=== PATIENT | female | born 1995 | race Caucasian/White ===

== ENCOUNTER 2024-04-17 10:26 | Emergency (ER) | payer SELFPAY ==
[2024-04-17 10:26] VITALS: BP 131/84
--- NOTE | 2024-04-17 12:48 | ED.GENMED ---
History of Present Illness
General
Chief Complaint: Abdominal Pain
Source: patient
Exam Limitations: none
Time Seen by Provider: 04/17/24 12:34
Nursing documentation reviewed up to this point in time: agreed with
History of Present Illness
History of Present Illness:
29-year-old female with no clinically significant PMHX is here for left-sided abdominal pain.
Patient states pain has come and gone over the past month, it got worse last night to where she had trouble sleeping. She was seen at [facility] yesterday, she is very tearful explaining that they did a pelvic ultrasound which showed a cyst on her
ovary diagnosed her with UTI and discharged her on Macrodantin which she has had 1 dose.
She states she was told they were going to do a CAT scan but 'never did it.'
She states the pain is relieved somewhat temporarily with ibuprofen. She has been nauseous but not vomited. She denies fever or chills. Denies chest pain or trouble breathing. Denies burning or frequency or urgency with urination. Denies
diarrhea or constipation.
Past History
Past History
ED Past Medical History: Psychiatric (Depression, on Adderall and medical marijuana) and Other (UTI)
ED Past Surgical History: None
Social History
Tobacco: Former smoker
Alcohol: None
Drug: Marijuana
Personal: Single
Living: with family
Employment: Employed
Review of Systems
Review of Systems
Allergies reviewed?: Yes
All Other Systems: ROS reviewed and negative except as documented in HPI and ROS
Constitutional: Denies fever
EENT: Denies sore throat
Respiratory: Denies trouble breathing
ABD/GI: Reports abdominal pain and nausea; Denies vomiting, diarrhea, constipated, bloody stools, black stools or anorexia
: Denies dysuria, frequency, flank pain, difficulty voiding, bleeding or discharge
Musculoskeletal: Reports no symptoms
Skin: Reports no symptoms
Neurological: Reports no symptoms
Phy Exam
Physical Exam
Physical Exam:
GENERAL: No acute distress. A&Ox3.
CONSTITUTIONAL: Afebrile.
EYES: PERRL, conjunctivae normal
Neck: Supple
ENMT: moist mucus membranes, Pharynx nl
RESPIRATORY: Regular respirations, nonlabored, lungs clear.
CARDIOVASCULAR: Regular rate and rhythm, no murmurs, no rubs.
GI: Soft, tender left side abdomen,, nondistended, normal BS
MUSCULOSKELETAL: Moves with ease. Well perfused.
SKIN: Warm, dry, pink
PSYCH: Tearful, depressed mood and affect. Well kept, interactive and appropriate
NEUROLOGIC: Awake, alert and oriented. No focal neurological deficits
Course
Orders/Labs/Results
Orders:
Orders
04/17/24 12:46
CT Abd/pel W Iv And Oral Contr Urgent
Comment:
Reason For Exam: left side abdominal pain
Iohexol [Omnipaque] See Protocol PO NOW STA
Test Result ONCE
04/17/24 12:47
0.9% Sodium Chloride 1000 ml [Nss] 1,000 ml IV BOLUS
Ketorolac [Toradol] 15 mg IV NOW STA
Ondansetron Injectable [Zofran] 4 mg IV NOW STA
04/17/24 12:57
Test Result ONCE
04/17/24 13:08
Complete Blood Count/With Diff Urgent
Comprehensive Metabolic Panel Urgent
HCG, Serum Qualitative Screen Urgent
Lipase Urgent
TSH Urgent
Comment: ADD ON
04/17/24 13:10
Urinalysis Reflex To Culture Urgent
Date Specimen was Collected: 04/17/24
Time Specimen was Collected: 13:09
Urine Microscopic Reflex Cult Urgent
Urine Culture Urgent
VITO Source: U
Specimen Description:
Date Specimen was Collected: 04/17/24
Time Specimen was Collected: 13:09
04/17/24 16:29
Add On- LAB Urgent
Tests Added?: TSH
04/17/24 17:20
Tamsulosin [Flomax] 0.4 mg PO NOW STA
04/17/24 17:31
Sulfamethox./Trimethoprim Ds [Bactrim Ds 800 mg/160 mg] 1 tablet PO NOW STA
Abnormal Lab Results
04/17/24 04/17/24
13:08 13:10
MCV 80.1 L fL
(81.0-99.0)
Chloride 108 H mmol/L
(98-107)
Calcium 10.3 H mg/dl
(8.4-10.2)
Urine Ketones 2+ A
(Negative)
Ur Occult Blood Reflex 3+ A
(Negative)
Leukocyte Esterase Rfl Trace A
(Negative)
Urine RBC 70-80 A /HPF
(0-2)
Urine WBC (Reflex) 16-20 A /HPF
(0-5)
Urine Bacteria (Reflex) Moderate A
(Negative)
Urine Albumin (Reflex) 1+ A
(Neg - Trace)
04/17/24 13:08
04/17/24 13:08
Vital Signs
Initial and Last Documented VS:
Initial Vital Signs
Temp Pulse Resp BP Pulse Ox
98.1 F 70 16 131/84 97
04/17/24 10:26 04/17/24 10:26 04/17/24 10:26 04/17/24 10:26 04/17/24 10:26
Last Documented Vital Signs
Temp Pulse Resp BP Pulse Ox
98.1 F 76 13 106/68 99
04/17/24 10:26 04/17/24 16:15 04/17/24 16:15 04/17/24 15:00 04/17/24 16:15
MDM/Problems Addressed
Differential Diagnosis Includes:
UTI, Pyelonephritis, diverticulitis
MDM/Problems Addressed:
29-year-old female with no clinically significant PMHX is here for left-sided abdominal pain.
Patient states pain has come and gone over the past month, it got worse last night to where she had trouble sleeping. She was seen at [facility] yesterday, she is very tearful explaining that they did a pelvic ultrasound which showed a cyst on her
ovary diagnosed her with UTI and discharged her on Macrodantin which she has had 1 dose.
She states she was told they were going to do a CAT scan but 'never did it.'
She states the pain is relieved somewhat temporarily with ibuprofen. She has been nauseous but not vomited. She denies fever or chills. Denies chest pain or trouble breathing. Denies burning or frequency or urgency with urination. Denies
diarrhea or constipation.
Afebrile
1:45 PM:
CBC, CMP normal
hCG negative
Lipase normal
2:30 p.m.
U/A: 3+ occult blood, 7080 RBCs, WBC 16-20, moderate bacteria, negative nitrates, trace leukocytes
Pt updated on results. She states her pain is much improved. She is calm.
4:[address] abd/pelvis: Radiology report read: IMPRESSION:
1).There is a 1.5 mm partially obstructing calculus at the left ureterovesical junction associated with minimal/borderline left hydronephrosis and left hydroureter
2).There are multiple pulmonary nodules at both lung bases measuring up to 7.5 mm with differential diagnosis including pulmonary metastasis, fungal infections and sarcoidosis
3). There are multiple bilateral nonobstructing renal calculi measuring up to 17 mm
4). There is 12 mm hypodense cyst in the left ovary
Pt is aware of lung pathology, states she had Covid in 2020, [facility] showed what they thought was 'metastatic cancer,' she was evaluated by pulmonology, scoped and told 'scar tissue and 'pockets' from the Covid.'
Pt has remained pain free.
Pt demographics sent to the PCP line to help her get PCP
*Critical Care Note
Total Time (30-74mins, 75-104mins- exclusive of procedures): Not Applicable
ED Attending Note
-
Portions of this chart may have been created with voice recognition software.� Occasional wrong word or��sound alike� substitutions may have occurred due to the inherent limitations of voice recognition software.
Discharge Plan
Departure
Patient Disposition: Home (Routine Discharge)
Date of Disposition: 04/17/24
Time of Disposition: 17:19
Patient with high blood pressure during this ER visit?: No
Condition: Good
Discharge Problem:
Calculus of distal left ureter, UTI (urinary tract infection)
Instructions: Kidney Stones (DC), Urinary Tract Infection, Adult ED
Prescriptions:
New
tamsulosin [Flomax] 0.4 mg capsule
0.4 mg PO DAILY Qty: 4 0RF
sulfamethoxazole-trimethoprim [Bactrim DS] 800-160 mg tablet
1 tab PO BID Qty: 13 0RF
No Action
Adderall Xr 20 mg Capsule
1 tab PO DAILY
Cipro:
500 mg PO BID
Ibuprofen
600 mg PO Q8H PRN (Reason: fever or pain)
hydrocodone-acetaminophen 1 TABLET tablet
1 tab PO QIDPRN PRN (Reason: moderate pain) Qty: 10 0RF
ibuprofen 600 MG tablet
600 mg PO Q6HPRN PRN (Reason: pain or fever. Take with food.) Qty: 25 0RF
Referrals:
Isidro Hurtado MD [Active] - Next open appointment
Jackie Power CRNP [Family Provider] -
Activity Restrictions/Additional Instructions:
As we discussed, your pain was caused by a kidney stone. It is very low in the ureter, next of the bladder as I told you and if you have not passed it yet you should pass soon.
Ibuprofen 600 mg every 6 hours as needed for pain.
I sent a prescription to your pharmacy for Flomax to relax the ureter and help the stone pass and also Bactim antibiotic. Start them tomorrow as you were given a dose here today.
Call the office of urologist Dr. Hurtado tomorrow and make a follow up appointment as you have numerous stones in your kidneys
Stop the Macrodantin
Return here IMMEDIATELY for fever, chills, vomiting, worsening pain or feeling sicker in any way.
Someone should be contacting you about a Primary doctor
Interventions
Interventions:
*Risk Screen - Suicide Last Done: 04/17/24 13:17
*General Assessment Last Done: 04/17/24 13:17
*Neglect/Abuse Screening Last Done: 04/17/24 13:17
ED- Fall Risk Assessment Last Done: 04/17/24 13:17
*ED COVID-19 Vaccine History Last Done: 04/17/24 13:17
*Nursing Disposition Last Done: 04/17/24 18:02
EL-Ndwgwn-Nuhzckbfqi Assessment Last Done: 04/17/24 13:17
Discharge Date and Time
Discharge Date/Time: 04/17/24 18:02
Print Language: VIET[place]ESE
[2024-04-17] MEDS: OMNIPAQUE 50 ML PO (13:04)
[2024-04-17] MEDS: TORADOL 15 MG IV (13:05)
[2024-04-17] MEDS: ZOFRAN 4 MG IV (13:05)
[2024-04-17] MEDS: NSS 1000 IV (13:06)
[2024-04-17 13:19] VITALS: BP 114/76
[2024-04-17 13:21] VITALS: BMI 28.8
[2024-04-17 13:22] LABS: % Basophils 0.7 % (0-2); % Eosinophils 0.6 % (0-6); % Immature Granulocytes 0.2 % (0-0.5); % Lymphocytes 29.6 % (20.5-51.1); % Monocytes 4.7 % (1.7-9.3); % Neutrophils 64.2 % (42.2-75.2); Absolute Basophils 0.1 10^3/uL (0-0.2); Absolute Eosinophils 0.1 10^3/uL (0-0.7); Absolute Lymphocytes 2.4 10^3/uL (1.2-3.4); Absolute Monocytes 0.4 10^3/uL (0.1-0.6); Absolute Neutrophils 5.1 10^3/uL (1.4-6.5); Hematocrit 37.5 % (37.0-47.0); Hemoglobin 13.2 g/dL (12.0-16.0); Mean Corp Hgb Conc. 35.2 g/dL (33.0-37.0); Mean Corpuscular Hgb 28.2 pg (27.0-31.0); Mean Corpuscular Volume 80.1 fL (81.0-99.0); Mean Platelet Volume 10.4 fL (7.4-10.4); Nucleated Red Blood Cells % 0 %; Platelet Count 254 10^3/uL (130-400); Red Blood Cell Count 4.68 10^6/uL (4.20-5.40); Red Cell Dist. Width 13.3 % (11.5-14.5)
[2024-04-17 13:36] LABS: ALT (SGPT) 22 U/L (0-35); AST (SGOT) 27 U/L (14-36); Albumin 4.6 g/dl (3.5-5.0); Alkaline Phosphatase 62 U/L (38-126); Blood Urea Nitrogen 10 mg/dl (7-17); Calcium 10.3 mg/dl (8.4-10.2); Carbon Dioxide 26 mmol/L (22-30); Chloride 108 mmol/L (98-107); Estimated Creatinine Clearance 121 ml/min; Glucose 92 mg/dl (70-99); Potassium 4.1 mmol/L (3.5-5.1); Sodium 144 mmol/L (135-145); Total Bilirubin 0.8 mg/dl (0.2-1.3); Total Protein 7.2 g/dl (6.3-8.2); eGFR > 60.00
[2024-04-17 13:57] LABS: HCG, Serum Qualitative Screen Negative
[2024-04-17 13:57] LABS: Urine Albumin 1+ (Neg - Trace); Urine Bilirubin Negative (Negative); Urine Character Slightly Cloudy (Clear); Urine Color Amber; Urine Glucose Negative (Negative); Urine Ketone 2+ (Negative); Urine Leukocyte Trace (Negative); Urine Nitrite Negative (Negative); Urine Occult Blood 3+ (Negative); Urine Urobilinogen Negative (Neg - 1+); Urine pH 6.5 (5.0-9.0)
[2024-04-17 14:00] VITALS: BP 107/65
[2024-04-17 14:17] LABS: Lipase 89 U/L (23-300)
[2024-04-17 14:28] LABS: Urine Red Blood Cell 70-80 /HPF (0-2); Urine White Cell 16-20 /HPF (0-5)
[2024-04-17 14:29] LABS: Urine Bacteria Moderate (Negative)
[2024-04-17 15:00] VITALS: BP 106/68
[2024-04-17] MEDS: BACTRIM DS 800 MG/160 MG 1 TABLET PO (17:44)
[2024-04-17] MEDS: FLOMAX 0.4 MG PO (17:44)
[2024-04-17 18:32] LABS: TSH 1.91 uIU/ml (0.47-4.68)
== END 2024-04-17 18:02 | disposition home or self-care (01) ==
LOC: EMR 10:26
PROVIDERS: Registered Nurse; EMERGENCY PHYSICIAN Emergency Medicine; FAMILY PHYSICIAN Nurse Practitioner Adult Health
DX: N39.0 Urinary tract infection, site not specified (principal); N13.2 Hydronephrosis with renal and ureteral calculous obstruction; R11.0 Nausea; R91.8 Other nonspecific abnormal finding of lung field; N83.202 Unspecified ovarian cyst, left side; F32.A Depression, unspecified; Z86.16 Personal history of COVID-19; Z87.440 Personal history of urinary (tract) infections; Z87.891 Personal history of nicotine dependence
CPT/HCPCS: 99285; 96375; 96361; 96374; 74177; 80053; 81003; 81015; 83690; 84443; 84703; 85025; 87086; Q9967

== ENCOUNTER 2024-05-31 13:22 | Observation (INO) | payer OTHER, SELFPAY ==
[2024-05-31] VITALS (13 sets, daily range): BP systolic 104–129; BP diastolic 54–97; BMI 27.0
[2024-05-31 08:27] LABS: Urine Albumin 1+ (Neg - Trace); Urine Bilirubin Negative (Negative); Urine Character Slightly Cloudy (Clear); Urine Color Yellow; Urine Glucose Negative (Negative); Urine Ketone Negative (Negative); Urine Leukocyte 2+ (Negative); Urine Nitrite Negative (Negative); Urine Occult Blood 3+ (Negative); Urine Urobilinogen Negative (Neg - 1+)
[2024-05-31 08:31] LABS: HCG, Urine Qualitative Screen Negative
[2024-05-31 08:48] LABS: % Basophils 0.6 % (0-2); % Eosinophils 1.4 % (0-6); % Immature Granulocytes 0.2 % (0-0.5); % Lymphocytes 23.9 % (20.5-51.1); % Monocytes 5.2 % (1.7-9.3); % Neutrophils 68.7 % (42.2-75.2); Absolute Basophils 0.1 10^3/uL (0-0.2); Absolute Eosinophils 0.1 10^3/uL (0-0.7); Absolute Lymphocytes 2.1 10^3/uL (1.2-3.4); Absolute Monocytes 0.5 10^3/uL (0.1-0.6); Hemoglobin 13.5 g/dL (12.0-16.0); Mean Corp Hgb Conc. 34.6 g/dL (33.0-37.0); Mean Corpuscular Hgb 28.8 pg (27.0-31.0); Mean Corpuscular Volume 83.3 fL (81.0-99.0); Mean Platelet Volume 9.8 fL (7.4-10.4); Nucleated Red Blood Cells % 0 %; Platelet Count 238 10^3/uL (130-400); Red Blood Cell Count 4.68 10^6/uL (4.20-5.40); Red Cell Dist. Width 12.9 % (11.5-14.5); White Blood Cell Count 8.8 10^3/uL (4.8-10.8)
[2024-05-31 08:53] LABS: Urine Mucus Many; Urine Squamous Cell 26-30 /LPF (Few)
[2024-05-31 08:54] LABS: Urine Red Blood Cell >100 /HPF (0-2)
[2024-05-31 08:55] LABS: Urine White Cell 60-70 /HPF (0-5)
[2024-05-31 08:56] LABS: Urine Amorphous Seen
[2024-05-31 08:57] LABS: Urine Bacteria Moderate (Negative)
--- NOTE | 2024-05-31 08:58 | ED.GENMED ---
History of Present Illness
<Ayaka Guerrero, TROUBLE OPERATOR - Last Filed: 05/31/24 15:47>
General
Chief Complaint: Flank Pain
Source: patient
Exam Limitations: none
Time Seen by Provider: 05/31/24 08:17
Nursing documentation reviewed up to this point in time: agreed with
History of Present Illness
History of Present Illness:
29-year-old female with history of kidney stones presents stating left flank pain since 2 p.m. yesterday. Denies fever/chills, feels nauseous, vomited x 2. took a Bactrim from a previous kidney stone, also took Ibuprofen/Acetaminophen combo with
little relief.
Past History
<Ayaka Guerrero, TROUBLE OPERATOR - Last Filed: 05/31/24 15:47>
Past History
ED Past Medical History: Psychiatric (Depression, on Adderall and medical marijuana) and Other (UTI, kidney stones)
ED Past Surgical History: None
Social History
Tobacco: Former smoker
Alcohol: None
Drug: Marijuana
Personal: Single
Living: with family
Employment: Employed
Review of Systems
<Ayaka Guerrero, TROUBLE OPERATOR - Last Filed: 05/31/24 15:47>
Review of Systems
Allergies reviewed?: Yes
All Other Systems: ROS reviewed and negative except as documented in HPI and ROS
Constitutional: Denies fever or chills
Respiratory: Denies trouble breathing
ABD/GI: Reports nausea and vomiting; Denies abdominal pain or diarrhea
: Reports flank pain (left); Denies dysuria, frequency or difficulty voiding
Musculoskeletal: Reports no symptoms
Skin: Reports no symptoms
Neurological: Reports no symptoms
Phy Exam
<Ayaka Guerrero, TROUBLE OPERATOR - Last Filed: 05/31/24 15:47>
Physical Exam
Physical Exam:
GENERAL: No acute distress. A&Ox3.
CONSTITUTIONAL: Afebrile.
EYES: clear, conjunctivae normal
RESPIRATORY: Regular respirations, nonlabored, lungs clear.
CARDIOVASCULAR: Regular rate and rhythm, no murmurs, no rubs.
GI: Soft, nontender, normal BS
MUSCULOSKELETAL: Moves with ease. Well perfused.
SKIN: Warm, dry, pink
PSYCH: Normal mood and affect. Well kept, interactive and appropriate
NEUROLOGIC: Awake, alert and oriented. No focal neurological deficits
Course
<Ayaka Guerrero, TROUBLE OPERATOR - Last Filed: 05/31/24 15:47>
Orders/Labs/Results
Orders:
Orders
05/31/24 08:14
Test Result ONCE
05/31/24 08:19
CT Abd/pel Without Iv Or Oral Urgent
Comment:
Reason For Exam: left flank pain
05/31/24 08:21
Urinalysis Reflex To Culture Urgent
Date Specimen was Collected: 05/31/24
Time Specimen was Collected: 08:14
Urine Microscopic Reflex Cult Urgent
Urine,Hcg qualitative screen [HCG, Urine Qualitative Screen] Urgent
Date Specimen was Collected: 05/31/24
Time Specimen was Collected: 08:14
Urine Culture Urgent
VITO Source: U
Specimen Description:
Date Specimen was Collected: 05/31/24
Time Specimen was Collected: 08:14
05/31/24 08:34
Complete Blood Count/With Diff Urgent
Comprehensive Metabolic Panel Urgent
HCG, Serum Qualitative Screen Urgent
Comment: ADD ON
05/31/24 09:39
CefTRIAXone [Rocephin] 1,000 mg IV NOW STA
05/31/24 Lunch
Regular
At Your Request: Full Participation
05/31/24 10:38
Add On- LAB Urgent
Tests Added?: HCG qualitative serum
05/31/24 11:18
HYDROmorphone [Dilaudid] 0.25 mg IV PACU-Q5MPRN PRN
HYDROmorphone [Dilaudid] 0.5 mg IV PACU-Q5MPRN PRN
Meperidine [Demerol] 12.5 mg IV PACU-Q5MPRN PRN
Ondansetron Injectable [Zofran] 4 mg IV PACU-ONCEPRN PRN
Prochlorperazine [Compazine] 5 mg IV PACU-ONCEPRN PRN
Notify MD As Directed
Notify physician if: for SDS patients with known or suspected sleep obstructive sleep apnea, monitor in the
PACU.
Notify MD for any apneic/desaturation episodes
O2 Therapy [RESP] Urgent
Titrate/Wean O2 to maintain O2 sat greater than (%): 92
Special Instructions: -Provide supplemental oxygen to achieve O2 sat of 92% or greater.
-After 15 min, may wean O2 and discontinue if patient is able to maintain O2 sat of 92%
or greater during recovery period.
If patient is a discharge home, without oxygen therapy, notify anestheiologist if
unable to maintain O2 SAT of 92% or greater on room air for MD clearance.
05/31/24 11:39
Fentanyl Citrate/Pf [Sublimaze] 100 mcg .ROUTE .STK-MED ONE
Lidocaine 2% Mpf [Xylocaine Mpf 2%] 100 mg .ROUTE .STK-MED ONE
Midazolam HCl [Versed] 5 mg .ROUTE .STK-MED ONE
Propofol [Diprivan] 20 ml .ROUTE .STK-MED
05/31/24 11:40
Midazolam HCl [Versed] 2 mg .ROUTE .STK-MED ONE
05/31/24 12:30
Phytonadione [Mephyton] 2.5 mg PO NOW STA
05/31/24 12:36
Ketorolac [Toradol] 30 mg .ROUTE .STK-MED ONE
05/31/24 12:52
Tolterodine Extended Release [Detrol LA] 4 mg PO DAILYPRN PRN
Advance Diet as Tolerated As Directed
Goal Diet: Regular
CR Abdomen - 1 View Routine
RF Fluoroscopy, C-arm Routine
Reason For Exam: LEFT STENT PLACEMENT
05/31/24 12:56
Admit/Transfer Patient As Directed
Co-Sign Provider:
Level of Care: Observation services
Assign to:: Medical/Surgical
Physician / Group: [facility]/Hospitalist
Diagnosis: Renal Colic
Reason for Hospitalization: Renal Colic
Urinary Tract Infection
05/31/24 12:57
PRN Pain Medication Management As Directed
May give lesser potent ordered pain med per pt: Yes
preference::
Protocol:: Medication orders for pain may be administered in a
manner that supports deferring to patient preference
when the pt is:
- Requesting an ordered lesser potent pain medication.
Least to most potent pain medications are defined
as: acetaminophen < NSAID < tramadol < opioids
(morphine, oxycodone, hydromorphone).
- Requesting a lesser dose of the same medication IF
ORDERED.
- Requesting a less intrusive route of administration
if both routes are prescribed by the provider (PO <
IV).
05/31/24 12:59
Code Status As Directed
Resuscitation Status: Full Code
05/31/24 14:06
Bisacodyl [Dulcolax] 10 mg RECTAL [id number] PRN
Docusate W/Senna [Senokot-S] 1 tablet PO BIDPRN PRN
Polyethylene Glycol Powder [Miralax] 17 grams PO DAILYPRN PRN
05/31/24 14:06
Consult Nephrology [NEPHROLOGY CONSULT] Routine
Consulting Provider: Fareed Barber
Was physician already notified: Yes
Consult Urology [UROLOGY CONSULT] Routine
Consulting Provider: Ron Pepper
Was physician already notified: Yes
Activity As Directed
Activity Level: Out of Bed-Early Mobility
Vital Signs As Directed
Frequency: Per unit guidelines
DX Deep Vein Thrombosis Video Routine
05/31/24 16:00
KCl 20 Meq/D5.45%Sodchl 1000ML [D5/0.45%NSS with KCL 20 MEQ] 20 meq in 1,000 ml IV 60 mls/hr
05/31/24 20:00
Heparin 5,000 units SC Q12
06/01/24 06:00
Basic Metabolic Panel IN AM
Complete Blood Count/No Diff IN AM
06/01/24 10:00
CefTRIAXone [Rocephin] 1,000 mg IV Q24H
Abnormal Lab Results
05/31/24
08:21
Ur Occult Blood Reflex 3+ A
(Negative)
Leukocyte Esterase Rfl 2+ A
(Negative)
Urine RBC >100 A /HPF
(0-2)
Urine WBC (Reflex) 60-70 A /HPF
(0-5)
Urine Bacteria (Reflex) Moderate A
(Negative)
Urine Albumin (Reflex) 1+ A
(Neg - Trace)
05/31/24 08:34
05/31/24 08:34
Vital Signs
Initial and Last Documented VS:
Initial Vital Signs
Temp Pulse Resp BP Pulse Ox
98.1 F 54 18 129/97 100
05/31/24 07:59 05/31/24 07:59 05/31/24 07:59 05/31/24 07:59 05/31/24 07:59
Last Documented Vital Signs
Temp Pulse Resp BP Pulse Ox
97.6 F 52 18 119/78 99
05/31/24 14:51 05/31/24 14:51 05/31/24 14:51 05/31/24 14:51 05/31/24 14:51
<Lee Mullen, DO - Last Filed: 05/31/24 10:18>
Orders/Labs/Results
Orders:
Orders
05/31/24 08:14
Test Result ONCE
05/31/24 08:19
CT Abd/pel Without Iv Or Oral Urgent
Comment:
Reason For Exam: left flank pain
05/31/24 08:21
Urinalysis Reflex To Culture Urgent
Date Specimen was Collected: 05/31/24
Time Specimen was Collected: 08:14
Urine Microscopic Reflex Cult Urgent
Urine,Hcg qualitative screen [HCG, Urine Qualitative Screen] Urgent
Date Specimen was Collected: 05/31/24
Time Specimen was Collected: 08:14
Urine Culture Urgent
VITO Source: U
Specimen Description:
Date Specimen was Collected: 05/31/24
Time Specimen was Collected: 08:14
05/31/24 08:34
Complete Blood Count/With Diff Urgent
Comprehensive Metabolic Panel Urgent
HCG, Serum Qualitative Screen Urgent
Comment: ADD ON
05/31/24 09:39
CefTRIAXone [Rocephin] 1,000 mg IV NOW STA
05/31/24 Lunch
Regular
At Your Request: Full Participation
05/31/24 10:38
Add On- LAB Urgent
Tests Added?: HCG qualitative serum
05/31/24 11:18
HYDROmorphone [Dilaudid] 0.25 mg IV PACU-Q5MPRN PRN
HYDROmorphone [Dilaudid] 0.5 mg IV PACU-Q5MPRN PRN
Meperidine [Demerol] 12.5 mg IV PACU-Q5MPRN PRN
Ondansetron Injectable [Zofran] 4 mg IV PACU-ONCEPRN PRN
Prochlorperazine [Compazine] 5 mg IV PACU-ONCEPRN PRN
Notify MD As Directed
Notify physician if: for SDS patients with known or suspected sleep obstructive sleep apnea, monitor in the
PACU.
Notify MD for any apneic/desaturation episodes
O2 Therapy [RESP] Urgent
Titrate/Wean O2 to maintain O2 sat greater than (%): 92
Special Instructions: -Provide supplemental oxygen to achieve O2 sat of 92% or greater.
-After 15 min, may wean O2 and discontinue if patient is able to maintain O2 sat of 92%
or greater during recovery period.
If patient is a discharge home, without oxygen therapy, notify anestheiologist if
unable to maintain O2 SAT of 92% or greater on room air for MD clearance.
05/31/24 11:39
Fentanyl Citrate/Pf [Sublimaze] 100 mcg .ROUTE .STK-MED ONE
Lidocaine 2% Mpf [Xylocaine Mpf 2%] 100 mg .ROUTE .STK-MED ONE
Midazolam HCl [Versed] 5 mg .ROUTE .STK-MED ONE
Propofol [Diprivan] 20 ml .ROUTE .STK-MED
05/31/24 11:40
Midazolam HCl [Versed] 2 mg .ROUTE .STK-MED ONE
05/31/24 12:30
Phytonadione [Mephyton] 2.5 mg PO NOW STA
05/31/24 12:36
Ketorolac [Toradol] 30 mg .ROUTE .STK-MED ONE
05/31/24 12:52
Tolterodine Extended Release [Detrol LA] 4 mg PO DAILYPRN PRN
Advance Diet as Tolerated As Directed
Goal Diet: Regular
CR Abdomen - 1 View Routine
RF Fluoroscopy, C-arm Routine
Reason For Exam: LEFT STENT PLACEMENT
05/31/24 12:56
Admit/Transfer Patient As Directed
Co-Sign Provider:
Level of Care: Observation services
Assign to:: Medical/Surgical
Physician / Group: [facility]/Hospitalist
Diagnosis: Renal Colic
Reason for Hospitalization: Renal Colic
Urinary Tract Infection
05/31/24 12:57
PRN Pain Medication Management As Directed
May give lesser potent ordered pain med per pt: Yes
preference::
Protocol:: Medication orders for pain may be administered in a
manner that supports deferring to patient preference
when the pt is:
- Requesting an ordered lesser potent pain medication.
Least to most potent pain medications are defined
as: acetaminophen < NSAID < tramadol < opioids
(morphine, oxycodone, hydromorphone).
- Requesting a lesser dose of the same medication IF
ORDERED.
- Requesting a less intrusive route of administration
if both routes are prescribed by the provider (PO <
IV).
05/31/24 12:59
Code Status As Directed
Resuscitation Status: Full Code
05/31/24 14:06
Bisacodyl [Dulcolax] 10 mg RECTAL [id number] PRN
Docusate W/Senna [Senokot-S] 1 tablet PO BIDPRN PRN
Polyethylene Glycol Powder [Miralax] 17 grams PO DAILYPRN PRN
05/31/24 14:06
Consult Nephrology [NEPHROLOGY CONSULT] Routine
Consulting Provider: Fareed Barber
Was physician already notified: Yes
Consult Urology [UROLOGY CONSULT] Routine
Consulting Provider: Ron Pepper
Was physician already notified: Yes
Activity As Directed
Activity Level: Out of Bed-Early Mobility
Vital Signs As Directed
Frequency: Per unit guidelines
DX Deep Vein Thrombosis Video Routine
05/31/24 16:00
KCl 20 Meq/D5.45%Sodchl 1000ML [D5/0.45%NSS with KCL 20 MEQ] 20 meq in 1,000 ml IV 60 mls/hr
05/31/24 20:00
Heparin 5,000 units SC Q12
06/01/24 06:00
Basic Metabolic Panel IN AM
Complete Blood Count/No Diff IN AM
06/01/24 10:00
CefTRIAXone [Rocephin] 1,000 mg IV Q24H
Abnormal Lab Results
05/31/24
08:21
Ur Occult Blood Reflex 3+ A
(Negative)
Leukocyte Esterase Rfl 2+ A
(Negative)
Urine RBC >100 A /HPF
(0-2)
Urine WBC (Reflex) 60-70 A /HPF
(0-5)
Urine Bacteria (Reflex) Moderate A
(Negative)
Urine Albumin (Reflex) 1+ A
(Neg - Trace)
05/31/24 08:34
05/31/24 08:34
Vital Signs
Initial and Last Documented VS:
Initial Vital Signs
Temp Pulse Resp BP Pulse Ox
98.1 F 54 18 129/97 100
05/31/24 07:59 05/31/24 07:59 05/31/24 07:59 05/31/24 07:59 05/31/24 07:59
Last Documented Vital Signs
Temp Pulse Resp BP Pulse Ox
97.6 F 52 18 119/78 99
05/31/24 14:51 05/31/24 14:51 05/31/24 14:51 05/31/24 14:51 05/31/24 14:51
<Ayaka Guerrero TROUBLE OPERATOR - Last Filed: 05/31/24 15:47>
MDM/Problems Addressed
Differential Diagnosis Includes:
left ureteral calculus, UTI, pyelonephritis
MDM/Problems Addressed:
29-year-old female with history of kidney stones presents stating left flank pain since 2 p.m. yesterday. Denies fever/chills, feels nauseous, vomited x 2. took a Bactrim from a previous kidney stone, also took Ibuprofen/Acetaminophen combo with
little relief.
Afebrile, NAD
9:30 AM:
CBC normal
CMP normal
UA: RBCs greater than 100, 2+ leukocyte, 60-70 WBCs, moderate bacteria, 25-[address] radiology report reviewed: IMPRESSION:
There is an 8 mm partially obstructing stone in the left renal pelvic junction/proximal left ureter with associated mild left-sided hydronephrosis. There are numerous nonobstructing stones in the right kidney measuring up to 1.4 cm, similar in
appearance to prior.
There are extensive subcentimeter pulmonary nodules which measure up to 7 mm. Findings are overall similar in appearance to prior. The differential is broad however includes infection, specifically fungal as well as pulmonary metastasis.
Patient aware of the CAT scan result and is followed [facility], she has a CAT scan of her chest ordered
With infected urine, flank pain, concern for pyelonephritis, 8mm proximal partially obstructing stone, will admit, IV Rocephin ordered.
Urology Dr. Pepper and Hospitalist notified of admission.
<Ayaka Guerrero, TROUBLE OPERATOR - Last Filed: 05/31/24 15:47>
*Critical Care Note
Total Time (30-74mins, 75-104mins- exclusive of procedures): Not Applicable
ED Attending Note
<Ayaka Guerrero, TROUBLE OPERATOR - Last Filed: 05/31/24 15:47>
-
Portions of this chart may have been created with voice recognition software.� Occasional wrong word or��sound alike� substitutions may have occurred due to the inherent limitations of voice recognition software.
<Lee Mullen, DO - Last Filed: 05/31/24 10:18>
ED Attending Note
Patient seen and examined by attending physician: Yes
I performed the substantive portion of visit, reviewed & personally made and approve the management plan that is documented in note by myself or LANDY.: Yes
ED Attending Note:
I have seen and evaluated the patient with a [id number] encounter. I have spoken to the advance practicer provider and involved in the medical history, the physical exam, medical decision making.
Evaluation and management service: agree unless noted differently below.
Results interpretation: agree unless noted differently below.
Focused HPI: 29-year-old female presenting with left flank pain
Physical exam: Mildly uncomfortable
Medical Decision Making: CT consistent with obstructive kidney stone. This in addition to concerns pyelonephritis, urology made aware and will come in for stent placement. Patient started antibiotics
Discharge Plan
Departure
Patient Disposition: Admit
Date of Disposition: 05/31/24
Time of Disposition: 10:30
Admit to: Med/Surg
Presentation/result/management discussed w/ accepting MD/DO: Hospitalist
Patient with high blood pressure during this ER visit?: No
Condition: Fair
Discharge Problem:
Left ureteral calculus, Pyelonephritis
Interventions
Interventions:
*Risk Screen - Suicide Last Done: 05/31/24 07:59
*General Assessment Last Done: 05/31/24 07:59
*Neglect/Abuse Screening Last Done: 05/31/24 07:59
ED- Fall Risk Assessment Last Done: 05/31/24 12:56
*ED COVID-19 Vaccine History Last Done: 05/31/24 08:37
*Nursing Disposition Last Done: 05/31/24 12:56
DT-Rikkjw-Xgarijhbxt Assessment Last Done: 05/31/24 08:37
Discharge Date and Time
Discharge Date/Time: 05/31/24 12:56
[2024-05-31 09:03] LABS: ALT (SGPT) 28 U/L (0-35); AST (SGOT) 23 U/L (14-36); Albumin 4.7 g/dl (3.5-5.0); Alkaline Phosphatase 55 U/L (38-126); Blood Urea Nitrogen 17 mg/dl (7-17); Calcium 10.1 mg/dl (8.4-10.2); Carbon Dioxide 28 mmol/L (22-30); Chloride 102 mmol/L (98-107); Estimated Creatinine Clearance 81 ml/min; Glucose 91 mg/dl (70-99); Potassium 4.1 mmol/L (3.5-5.1); Sodium 141 mmol/L (135-145); Total Bilirubin 0.6 mg/dl (0.2-1.3); Total Protein 7.1 g/dl (6.3-8.2); eGFR > 60.00
[2024-05-31] MEDS: ROCEPHIN 1000 MG IV (09:48)
--- NOTE | 2024-05-31 09:49 | EDRN ---
Charge nurse requested to place pt in a room versus the hallway bed, this request was denied
[2024-05-31 11:24] LABS: HCG, Serum Qualitative Screen Negative
--- NOTE | 2024-05-31 12:12 | W.PN.URO.CBU ---
Today's Communication / Plan
-
to op room left stone manipuation
Assessment / Plan
-
impasavble stone uti will give iv abs and place stent manipulate stone
Diagnosis
-
Date of Service: May 31, 2024
-
Patient Diagnosis:uti partial;ly obstructing stome left prox uretr
Post Op Day:
Subjective
-
colic nl fwevr chils
Objective
-
Vital Signs
Temp Pulse Resp BP Pulse Ox
98.1 F 60 15 107/75 99
05/31/24 07:59 05/31/24 10:13 05/31/24 10:13 05/31/24 10:13 05/31/24 10:13
Laboratory Results
05/31/24 08:34
05/31/24 08:34
Review of Systems
-
: Dysuria, Frequency and Flank Pain
Physical Exam
-
General - well developed, well nourished, pain nonon toxic
Chest - clear bilaterally
Abdomen - soft, non-tender, positive bowel sounds, no CVAT, no incisional pain or distention
Genitalia - normal
Rectal - normal
Skin - warm & dry with no rash
Neuro - AOx3, no motor deficits
Extremities - no clubbing, no cyanosis, no edema
Incision - clean, dry
Dressing - clean, dry, intact
Care Review
Data Reviewed
Discussed with: Nursing
CT Scan: Image Pers Reviewed
--- NOTE | 2024-05-31 12:53 | W.SUR.POST ---
Surgical Immediate Post Op
Note
Pre Op Diagnosis: uti and partially obstruvcting left prox uretral stone
Post Op Diagnosis:
Procedure Performed: cystocopy ansd stone manipulation jj stent
Primary Surgeonflashner:
Secondary Surgeons:
Anesthesia: dr brenda angel
Estimated Blood Loss: 2cc
Fluids: nss
Drains/Shunts: 6 fr 24 cm jj stent
Specimens/Cultures:
Doppler/Duplex/Angio (Y/N):
Complications: 0
Operative Findings:
multiple lg stone but no urine left u/o from 9m left ureteral stone
--- NOTE | 2024-05-31 13:10 | W.PN.HOSP.TC ---
Today's Communication/Plan
-
IVF
empiric Rocephin
Urology and Nephrology consults
reviewed with Dr. Pepper and Dr. Barber
Assessment / Plan
Assessment / Plan
Acute Left Renal Colic
Urology consulted, pt to have stent placed
CT scan: There is an 8 mm partially obstructing stone in the left renal pelvic junction/proximal left ureter with associated mild left-sided hydronephrosis. There are numerous nonobstructing stones in the right kidney measuring up to 1.4 cm,
similar in appearance to prior.
There are extensive subcentimeter pulmonary nodules which measure up to 7 mm. Findings are overall similar in appearance to prior. The differential is broad however includes infection, specifically fungal as well as pulmonary metastasis.
Heavy stone burden
as per Dr. Pepper, requested nephrology consult. Call placed and discussed with Dr. Barber, who will see the patient in near future
Pulmonary Nodules
this is known, pt follows with Dr. Dario Garcia at [place] for this
UTI
Ur cx obtained, will continue Rocephin, having received first dose earlier, pending cx results
Full Code
see dictated note
Anticipated Discharge: 24 - 48 hours
Subjective/Interval History
-
Date of Service: May 31, 2024
Hx of renal colic with severe left flank pain
Objective Data
-
Labs:
Laboratory Results
05/31/24
08:34
WBC 8.8
Hgb 13.5
Hct 39.0
Plt Count 238
Sodium 141
Potassium 4.1
Chloride 102
Carbon Dioxide 28
BUN 17
Creatinine 0.9
Glucose 91
Calcium 10.1
Total Bilirubin 0.6
AST 23
ALT 28
Alkaline Phosphatase 55
Vital Signs:
Vital Signs
Temp Pulse Resp BP Pulse Ox
97.1 F 50 18 104/54 100
05/31/24 12:50 05/31/24 13:02 05/31/24 13:02 05/31/24 12:54 05/31/24 13:02
Review of Systems
-
History Source: Patient and Physician (reviewed with Dr. Pepper)
Constitutional: Denies Fever
EENT: Reports No Symptoms Reported
Respiratory: Reports No Symptoms
Cardiac: Reports No Symptoms
Abdomen/GI: Reports No Symptoms
Genitourinary: Reports Flank Pain (left sided)
Neuro: Reports No Symptoms
Physical Exam
-
General: Well Developed, Well Nourished and No Apparent Distress
HEENT: Normocephalic, Atraumatic and Moist Mucous Membranes
Respiratory: Clear to Auscultation; Negative Wheezes, Rales or Rhonchi
Cardiac: Regular Rhythm and S1/S2
GI: Soft, Nontender and Nondistended
Musculoskeletal: No Clubbing, No Cyanosis and No Edema
Skin: Warm and Dry
Neuro: Awake, Alert and Oriented
[2024-05-31] MEDS: TYLENOL 650 MG PO (15:31)
[2024-05-31] MEDS: D5/0.45%NSS with KCL 20 MEQ 1000 IV (15:50)
--- NOTE | 2024-05-31 16:16 | W.CON.NEPH ---
Consultation
-
Date/Time Consultation Requested: 05/31/2024 2 PM
Date/Time Consultation Performed: 05/31/2024 4 PM
Requesting Provider: Dr. Sparrow
Performing Provider: Dr. Barber
Reason for Consultation: Nephrolithiasis
Medical History
-
Chief Complaint: Flank pain
History of Present Illness:
This is a 29-year-old female with limited past medical history. She believes that she may have had kidney stones previously though these were first diagnosed formally in April last month. She does have depression, previously on Adderall and
medical marijuana though not currently. Early in Apr Macrodantin. The pain persisted and she ultimately came to [facility]. UTI was confirmed but a CT scan that showed multiple stones. Tember she had developed left-sided abdominal pain
and gone to [facility]. There she was told after ultrasound that she had a UTI and was given Macrodantin. After discharge she said pain and came to [facility]. CT scan showed multiple stones and partial left hydroureter.
She was given antibiotics and discharged. Since that time she had begun to drink 1.5 L of fluid per day. Yesterday she began developing left-sided flank pain once more this was associated with nausea and vomiting. She took some ibuprofen as well
came to the emergency room. CT scan disclosed hydronephrosis on the left and multiple stones on the right. She was taken to the OR for stone manipulation and stenting of the left ureter. We are asked to assist with management of her
nephrolithiasis.
Past Medical History
Depression, UTI, nephrolithiasis
Social History
Tobacco: Former Smoker
Alcohol: Occasional
Family History
CKD on her maternal side
Stones and a cousin
Allergies / Home Medications
Allergy/AdvReac Type Severity Reaction Status Date / Time
albuterol Allergy Unknown Verified 05/31/24 07:59
�Medication �Instructions �Recorded �Confirmed �Type
ibuprofen 125 mg-acetaminophen 250 1 tab PO Q8HPRN PRN MILD PAIN 05/31/24 05/31/24 History
mg tablet (Advil Dual Action)
sulfamethoxazole 800 1 tab PO BID Infection 05/31/24 05/31/24 History
mg-trimethoprim 160 mg tablet
(Bactrim DS)
Review of Systems
-
No chest pain shortness of breath. No abdominal pain.
All other systems: Negative unless noted
Physical Exam
Vital Signs
Vital Signs
Temp Pulse Resp BP Pulse Ox
97.6 F 52 18 119/78 99
05/31/24 14:51 05/31/24 14:51 05/31/24 14:51 05/31/24 14:51 05/31/24 14:51
Lab Results
WBC 8.8 10^3/uL (4.8-10.8) 05/31/24 08:34
RBC 4.68 10^6/uL (4.20-5.40) 05/31/24 08:34
Hgb 13.5 g/dL (12.0-16.0) 05/31/24 08:34
Hct 39.0 % (37.0-47.0) 05/31/24 08:34
Plt Count 238 10^3/uL (130-400) 05/31/24 08:34
Sodium 141 mmol/L (135-145) 05/31/24 08:34
Potassium 4.1 mmol/L (3.5-5.1) 05/31/24 08:34
Chloride 102 mmol/L (98-107) 05/31/24 08:34
Carbon Dioxide 28 mmol/L (22-30) 05/31/24 08:34
BUN 17 mg/dl (7-17) 05/31/24 08:34
Creatinine 0.9 mg/dL (0.6-1.0) 05/31/24 08:34
eGFR > 60.00 05/31/24 08:34
Glucose 91 mg/dl (70-99) 05/31/24 08:34
Calcium 10.1 mg/dl (8.4-10.2) 05/31/24 08:34
Albumin 4.7 g/dl (3.5-5.0) 05/31/24 08:34
Laboratory Tests
04/17/24
13:08
Creatinine 0.7
Calcium 10.3 H
Physical Exam
Patient is awake alert oriented and in no distress. Mood and affect were pleasant, insight and judgment were good. Pupils are equal round and reactive to light, extraocular movements are intact, sclera were anicteric. Hearing was normal, ears and
nose are intact. Oropharynx was clear. Neck was supple with trachea midline and no thyromegaly. Heart was regular rate and rhythm without rubs. Lower extremities without edema. Lungs were clear to auscultation bilaterally and with normal
excursion. Abdomen was soft, nontender, with normal active bowel sounds, and no hepatosplenomegaly. Skin was without rash and with normal turgor.
Data Reviewed
-
Radiology: Image Personally Visualized and interpreted (Abdominal x-ray on 05/31/2024 shows left ureteral stent, nephrolithiasis)
CT Scan: Report Reviewed by me (CT abdomen pelvis without contrast on 05/31/2024 shows numerous pulmonary nodules of the lower lobes, 8 mm stone in the left ureter with hydronephrosis, multiple right-sided stones nonobstructive up to 1.4 cm)
Labs: Labs Reviewed by me
Old Records: Reviewed
Assessment/Plan
-
Assessment
Nephrolithiasis recently diagnosed April 2024
Status post stent left ureteral
Pulmonary nodules
Plan
I discussed with regarding her nephrolithiasis. It is entirely possible that she has had the stones for several years.
Prevention of the stones will include increasing fluid intake to achieve close to 2 L of urine output per day
She will decrease her salt intake
She need not to reduce calcium intake she may restart her multivitamin
She will ultimately require a 24-hour stone risk urine collection to define further interventions
She may add lemon to her water
Eventual plan for her right-sided stones will also need to be determined with urology
Metabolic workup will be performed at this time
[2024-05-31] MEDS: ZOFRAN 4 MG IV (18:42)
[2024-06-01] MEDS: TYLENOL 650 MG PO (00:56)
[2024-06-01 07:29] LABS: Hematocrit 35.7 % (37.0-47.0); Hemoglobin 12.5 g/dL (12.0-16.0); Mean Corpuscular Volume 82.8 fL (81.0-99.0); Mean Platelet Volume 10.1 fL (7.4-10.4); Platelet Count 223 10^3/uL (130-400); Red Blood Cell Count 4.31 10^6/uL (4.20-5.40); Red Cell Dist. Width 12.8 % (11.5-14.5); White Blood Cell Count 7.7 10^3/uL (4.8-10.8)
[2024-06-01 07:34] VITALS: BP 117/80
[2024-06-01 07:51] LABS: Blood Urea Nitrogen 14 mg/dl (7-17); Calcium 9.7 mg/dl (8.4-10.2); Carbon Dioxide 25 mmol/L (22-30); Chloride 107 mmol/L (98-107); Estimated Creatinine Clearance 73 ml/min; Glucose 94 mg/dl (70-99); Potassium 4.4 mmol/L (3.5-5.1); Sodium 140 mmol/L (135-145); eGFR > 60.00
[2024-06-01] MEDS: D5/0.45%NSS with KCL 20 MEQ 1000 IV (08:01)
[2024-06-01 08:10] LABS: Vitamin D, 25-OH*** 49.2 ng/mL (30-80)
--- NOTE | 2024-06-01 09:04 | W.PN.URO.CBU ---
Today's Communication / Plan
-
ok by urology for d/c
Assessment / Plan
-
impasavble stone now steted and stabkle Can go hoe for, outpatient tx once cleared by hospitaliust
Diagnosis
-
Date of Service: June 01, 2024
-
Patient Diagnosis:
Post Op Day:
Patient Diagnosis:uti partial;ly obstructing stome left prox uretr
Post Op Day:
Subjective
-
frequency otherwise much improvemnt
Objective
-
Vital Signs
Temp Pulse Resp BP Pulse Ox
98.5 F 64 17 117/80 98
06/01/24 07:34 06/01/24 07:34 06/01/24 07:34 06/01/24 07:34 06/01/24 07:34
Intake and Output
05/31/24 06/01/24 06/02/24
06:59 06:59 06:59
Intake Total 240 / 240
Balance 240 / 240
Intake:
Oral fluids 240 / 240
Other:
Number of approximated MODERATE 3
amounts of urine
Laboratory Results
06/01/24 06:53
06/01/24 06:53
Review of Systems
-
: Frequency
Physical Exam
-
General - well developed, well nourished, no acute distress
Chest - clear bilaterally
Abdomen - soft, non-tender, positive bowel sounds, no CVAT, no incisional pain or distention
Genitalia - normal
Rectal - normal
Skin - warm & dry with no rash
Neuro - AOx3, no motor deficits
Extremities - no clubbing, no cyanosis, no edema
Incision - clean, dry
Dressing - clean, dry, intact
Care Review
Data Reviewed
Discussed with: Nursing
[2024-06-01] MEDS: ROCEPHIN 1000 MG IV (09:41)
[2024-06-01] MEDS: STERILE WATER FOR INJECTION 10 ML IV (09:41)
--- NOTE | 2024-06-01 11:03 | W.PN.NEPH.PH ---
Today's Communication / Plan
-
OP f/u
Assessment/Plan
-
Assessment
Nephrolithiasis recently diagnosed April 2024
Status post stent left ureteral
Pulmonary nodules
Plan
metabolic w/u ordered
f/u in office in 1-2 months
drink 64oz/d or more with lemon
no calcium restriction
-
-
Date of Service: June 01, 2024
CC / HPI / ROS
-
Chief Complaint:
Nephrolithiasis
History of Present Illness:
Pain controlled
BP stable
Review of Systems:
No chest pain or shortness of breath
Labs
-
Labs:
WBC 7.7 10^3/uL (4.8-10.8) 06/01/24 06:53
RBC 4.31 10^6/uL (4.20-5.40) 06/01/24 06:53
Hgb 12.5 g/dL (12.0-16.0) 06/01/24 06:53
Hct 35.7 % (37.0-47.0) L 06/01/24 06:53
Plt Count 223 10^3/uL (130-400) 06/01/24 06:53
Sodium 140 mmol/L (135-145) 06/01/24 06:53
Potassium 4.4 mmol/L (3.5-5.1) 06/01/24 06:53
Chloride 107 mmol/L (98-107) 06/01/24 06:53
Carbon Dioxide 25 mmol/L (22-30) 06/01/24 06:53
BUN 14 mg/dl (7-17) 06/01/24 06:53
Creatinine 1.0 mg/dL (0.6-1.0) 06/01/24 06:53
eGFR > 60.00 06/01/24 06:53
Glucose 94 mg/dl (70-99) 06/01/24 06:53
Calcium 9.7 mg/dl (8.4-10.2) 06/01/24 06:53
Calcium TNP 06/01/24 06:53
Phosphorus 3.0 mg/dl (2.5-4.5) 06/01/24 06:53
Albumin 4.7 g/dl (3.5-5.0) 05/31/24 08:34
Physical Exam
-
Vital Signs:
Vital Signs
Temp Pulse Resp BP Pulse Ox
98.5 F 64 17 117/80 98
06/01/24 07:34 06/01/24 07:34 06/01/24 07:34 06/01/24 07:34 06/01/24 08:15
Cardiovascular:: Regular rate and rhythm
Respiratory:: Bilateral: CTA
Lung Excursion:: Normal
Abdomen:: Nontender and Soft
Bowel Sounds:: Normal
Extremity Edema:: None: Bilateral:
--- NOTE | 2024-06-01 12:08 | W.PN.HOSP.TC ---
Today's Communication/Plan
-
dc to home
Assessment / Plan
Assessment / Plan
Acute Left Renal Colic
Urology consulted, stent placed
CT scan: There is an 8 mm partially obstructing stone in the left renal pelvic junction/proximal left ureter with associated mild left-sided hydronephrosis. There are numerous nonobstructing stones in the right kidney measuring up to 1.4 cm,
similar in appearance to prior.
There are extensive subcentimeter pulmonary nodules which measure up to 7 mm. Findings are overall similar in appearance to prior. The differential is broad however includes infection, specifically fungal as well as pulmonary metastasis.
Heavy stone burden
as per Dr. Pepper, requested nephrology consult. input of Dr. Barber, appreciated
Pulmonary Nodules
this is known, pt follows with Dr. Dario Garcia at [facility] for this, appt 06/09
UTI
Ur cx obtained, will continue Rocephin, received 2nd dose this morning
dc now
Full Code
see dictated note
Anticipated Discharge: Today
Subjective/Interval History
-
Date of Service: June 01, 2024
Feels well, markedly better
Objective Data
-
Labs:
Laboratory Results
06/01/24 06/01/24
06:53 06:53
WBC 7.7
Hgb 12.5
Hct 35.7 L
Plt Count 223
Sodium 140
Potassium 4.4
Chloride 107
Carbon Dioxide 25
BUN 14
Creatinine 1.0
Glucose 94
Calcium 9.7 TNP
Vital Signs:
Vital Signs
Temp Pulse Resp BP Pulse Ox
98.5 F 64 17 117/80 98
06/01/24 07:34 06/01/24 07:34 06/01/24 07:34 06/01/24 07:34 06/01/24 08:15
I&O
05/31/24 06/01/24 06/02/24
06:59 06:59 06:59
Intake Total 240 / 240
Balance 240 / 240
Review of Systems
-
History Source: Patient
Constitutional: Denies Fever
EENT: Reports No Symptoms Reported
Respiratory: Reports No Symptoms
Cardiac: Reports No Symptoms
Abdomen/GI: Reports No Symptoms
Genitourinary: Reports Flank Pain (left sided)
Neuro: Reports No Symptoms
Physical Exam
-
General: Well Developed, Well Nourished and No Apparent Distress
HEENT: Normocephalic, Atraumatic and Moist Mucous Membranes
Respiratory: Clear to Auscultation; Negative Wheezes, Rales or Rhonchi
Cardiac: Regular Rhythm and S1/S2
GI: Soft, Nontender and Nondistended
Genito-urinary: No Costovertebral Tender
Musculoskeletal: No Clubbing, No Cyanosis and No Edema
Skin: Warm and Dry
Neuro: Awake, Alert and Oriented
--- NOTE | 2024-06-01 12:25 | W.DS.TRANS ---
DC Summary - Upper Inspector
-
Discharge Instructions:
Discharge Diagnosis/Procedures Renal Colic
Diet Regular
Additional Diets 64 oz or more of water with lemon daily
Activity No restrictions
Driving Restrictions As prior to admission
Bathing Restrictions None
Instructions:
Stand-Alone Forms:
Changes to Home Medications: Yes
Discharge Medications:
DC Medications w/original date entered in [email or web address]
cefuroxime axetil 500 mg tablet 500 mg PO BID 10 days #20 tabs 06/01/24
tolterodine 4 mg capsule,extended release 24 hr 4 mg PO DAILYPRN PRN bladder spasms #30 caps 06/01/24
Home Medication Changes
Start Ceftin and Detrol
stop NSAID's and Bactrim
Pending Results: No
[2024-06-03 02:34] LABS: Angiotensin-1-converting Enzym 65 U/L (16-85)
[2024-06-03 09:37] LABS: Vitamin D 1,25 Dihydroxy 55.6 pg/mL (19.9-79.3)
== END 2024-06-01 13:15 | disposition home or self-care (01) ==
LOC: 3 WEST ACU 13:22
PROVIDERS: Registered Nurse; ADMITTING PHYSICIAN Internal Medicine; CONSULT PHYSICIAN Specialist; EMERGENCY PHYSICIAN Student in an Organized Health Care Education/Training Program; FAMILY PHYSICIAN Nurse Practitioner Adult Health
DX: N13.6 Pyonephrosis (principal); R10.9 Unspecified abdominal pain; R11.2 Nausea with vomiting, unspecified; R91.8 Other nonspecific abnormal finding of lung field; F32.A Depression, unspecified; F12.90 Cannabis use, unspecified, uncomplicated; Z87.442 Personal history of urinary calculi; Z87.891 Personal history of nicotine dependence; Z87.440 Personal history of urinary (tract) infections; Z84.1 Family history of disorders of kidney and ureter; Z88.8 Allergy status to other drugs, medicaments and biological substances
CPT/HCPCS: 52332; 74018; 74176; 76000; 80048; 80053; 81003; 81015; 81025; 82164; 82306; 82652; 83970; 84100; 84703; 85025; 85027; 87086; 96374; 99285; C2617; G0378

== ENCOUNTER 2024-06-22 06:20 | Day surgery (SDC) | payer OTHER, SELFPAY ==
[2024-06-22] VITALS (10 sets, daily range): BP systolic 101–117; BP diastolic 59–85; BMI 28.0
[2024-06-22 12:24] LABS: Urine Albumin 2+ (Neg - Trace); Urine Bilirubin Negative (Negative); Urine Character Clear (Clear); Urine Color Yellow; Urine Glucose Negative (Negative); Urine Ketone Negative (Negative); Urine Leukocyte 2+ (Negative); Urine Nitrite Negative (Negative); Urine Occult Blood 4+ (Negative); Urine Urobilinogen Negative (Neg - 1+)
[2024-06-22] MEDS: Pyridium 200 MG PO (12:48)
[2024-06-22 13:24] LABS: Urine Bacteria Few (Negative); Urine Mucus Few; Urine Red Blood Cell 40-50 /HPF (0-2); Urine Squamous Cell 0-2 /LPF (Few)
== END 2024-06-22 15:27 | disposition home or self-care (01) ==
LOC: SDS 06:20
PROVIDERS: ATTENDING PHYSICIAN Specialist
DX: N20.0 Calculus of kidney (principal); N39.0 Urinary tract infection, site not specified
CPT/HCPCS: 52356; 74018; 76000; 81003; 81015; 82365; 87086; A4300; C1894; C2617; J1580

== ENCOUNTER → 2024-07-28 07:54 | Outpatient (REF) | payer OTHER, SELFPAY | LOC: HWRAD 07:54 | PROVIDERS: ATTENDING PHYSICIAN Specialist; FAMILY PHYSICIAN Nurse Practitioner Adult Health | DX: N20.1 Calculus of ureter (principal) | CPT/HCPCS: 74018 ==

== ENCOUNTER 2024-09-08 06:32 | Day surgery (SDC) | payer OTHER, SELFPAY ==
[2024-09-08] VITALS (8 sets, daily range): BP systolic 98–112; BP diastolic 55–73; BMI 26.9
[2024-09-08 13:37] LABS: HCG, Urine Qualitative Screen Negative
[2024-09-08 13:40] LABS: Urine Albumin 3+ (Neg - Trace); Urine Bilirubin Negative (Negative); Urine Character Very Cloudy (Clear); Urine Color Yellow; Urine Glucose Negative (Negative); Urine Ketone Negative (Negative); Urine Leukocyte 2+ (Negative); Urine Nitrite Positive (Negative); Urine Occult Blood 4+ (Negative); Urine Urobilinogen Negative (Neg - 1+)
[2024-09-08 13:59] LABS: Urine Bacteria Many (Negative); Urine White Cell >100 /HPF (0-5)
[2024-09-08] MEDS: Pyridium 200 MG PO (15:27)
[2024-09-08] MEDS: DETROL LA 4 MG PO (15:27)
== END 2024-09-08 16:55 | disposition home or self-care (01) ==
LOC: SDS 06:32
PROVIDERS: ATTENDING PHYSICIAN Specialist
DX: N20.2 Calculus of kidney with calculus of ureter (principal)
CPT/HCPCS: 52356; 74018; 76000; 81003; 81015; 81025; 87086; C1769; C1894; C2617

== ENCOUNTER 2024-10-09 16:48 | Emergency (ER) | payer OTHER, SELFPAY ==
[2024-10-09 16:52] VITALS: BP 121/73
[2024-10-09 17:26] LABS: % Basophils 0.2 % (0-2); % Eosinophils 0.2 % (0-6); % Immature Granulocytes 0.2 % (0-0.5); % Lymphocytes 15.1 % (20.5-51.1); % Monocytes 4.3 % (1.7-9.3); Absolute Lymphocytes 0.9 10^3/uL (1.2-3.4); Absolute Monocytes 0.3 10^3/uL (0.1-0.6); Absolute Neutrophils 4.7 10^3/uL (1.4-6.5); Hematocrit 39.2 % (37.0-47.0); Hemoglobin 12.8 g/dL (12.0-16.0); Mean Corp Hgb Conc. 32.7 g/dL (33.0-37.0); Mean Corpuscular Hgb 26.7 pg (27.0-31.0); Mean Corpuscular Volume 81.7 fL (81.0-99.0); Mean Platelet Volume 9.7 fL (7.4-10.4); Nucleated Red Blood Cells % 0 %; Platelet Count 211 10^3/uL (130-400); Red Cell Dist. Width 13.1 % (11.5-14.5); White Blood Cell Count 5.8 10^3/uL (4.8-10.8)
[2024-10-09 17:27] LABS: HCG, Serum Qualitative Screen Negative
[2024-10-09 17:31] LABS: ALT (SGPT) 16 U/L (0-35); AST (SGOT) 21 U/L (14-36); Albumin 4.7 g/dl (3.5-5.0); Alkaline Phosphatase 66 U/L (38-126); Blood Urea Nitrogen 10 mg/dl (7-17); Calcium 9.4 mg/dl (8.4-10.2); Carbon Dioxide 25 mmol/L (22-30); Chloride 102 mmol/L (98-107); Glucose 93 mg/dl (70-99); Potassium 3.6 mmol/L (3.5-5.1); Sodium 137 mmol/L (135-145); Total Protein 7.1 g/dl (6.3-8.2); eGFR > 60.00
[2024-10-09 17:32] LABS: Lipase 45 U/L (23-300)
[2024-10-09 17:52] LABS: Urine Albumin 2+ (Neg - Trace); Urine Bilirubin Negative (Negative); Urine Character Slightly Cloudy (Clear); Urine Color Yellow; Urine Glucose Negative (Negative); Urine Ketone 3+ (Negative); Urine Leukocyte 2+ (Negative); Urine Nitrite Negative (Negative); Urine Occult Blood 2+ (Negative); Urine Urobilinogen 3+ (Neg - 1+)
[2024-10-09 18:10] LABS: Urine Bacteria Moderate (Negative); Urine Mucus Moderate; Urine Squamous Cell 0-2 /LPF (Few); Urine Urothelial Cell 0-2 /LPF (FEW); Urine White Cell 30-40 /HPF (0-5)
--- NOTE | 2024-10-09 19:34 | ED.GENMED ---
History of Present Illness
General
Chief Complaint: Flank Pain
Source: patient
Exam Limitations: none
Time Seen by Provider: 10/09/24 19:19
History of Present Illness
History of Present Illness:
29-year-old female with extensive history of kidney stones requiring stent placement and extraction as well as history of urosepsis presents with mainly right flank pain nausea vomiting and urinary symptoms. 2 weeks ago she had a right ureteral
stent removed in the office. She is concerned about another potential kidney infection. She notes chills and sweats at home but does not have a thermometer at home. No other complaints at this time
Past History
Past History
ED Past Medical History: Psychiatric (Depression, on Adderall and medical marijuana) and Other (UTI, kidney stones)
ED Past Surgical History: None
Social History
Tobacco: Former smoker
Alcohol: None
Drug: Marijuana
Personal: Single
Living: with family
Employment: Employed
Phy Exam
Physical Exam
Physical Exam:
General: Well-appearing female no acute respiratory distress
HEENT: Normocephalic atraumatic
Heart: Regular rate and rhythm no murmurs
Lungs: Clear no wheeze
Abd: soft, tender to right CVA, no guarding or rebound tenderness
Extremities: No cyanosis
Course
Orders/Labs/Results
Orders:
Orders
10/09/24 16:56
Test Result ONCE
10/09/24 17:05
Complete Blood Count/With Diff Urgent
Comprehensive Metabolic Panel Urgent
HCG, Serum Qualitative Screen Urgent
Lipase Urgent
Urinalysis Reflex To Culture Urgent
Date Specimen was Collected: 10/09/24
Time Specimen was Collected: 16:56
Urine Microscopic Reflex Cult Urgent
Urine Culture Urgent
VITO Source: U
Specimen Description:
Date Specimen was Collected: 10/09/24
Time Specimen was Collected: 16:56
10/09/24 19:33
CT Abd/pel Without Iv Or Oral Urgent
Comment:
Reason For Exam: right flank pain
0.9% Sodium Chloride 1000 ml [Nss] 1,000 ml IV BOLUS
CefTRIAXone [Rocephin] 1,000 mg IV NOW STA
Ketorolac [Toradol] 15 mg IV NOW STA
Ondansetron Injectable [Zofran] 4 mg IV NOW STA
Abnormal Lab Results
10/09/24
17:05
MCH 26.7 L pg
(27.0-31.0)
MCHC 32.7 L g/dL
(33.0-37.0)
Absolute Lymphs (auto) 0.9 L 10^3/uL
(1.2-3.4)
Neutrophils % 80.0 H %
(42.2-75.2)
Lymphocytes % 15.1 L %
(20.5-51.1)
Urine Ketones 3+ A
(Negative)
Ur Occult Blood Reflex 2+ A
(Negative)
Urine Urobilinogen 3+ A
(Neg - 1+)
Leukocyte Esterase Rfl 2+ A
(Negative)
Urine RBC 7-10 A /HPF
(0-2)
Urine WBC (Reflex) 30-40 A /HPF
(0-5)
Urine Bacteria (Reflex) Moderate A
(Negative)
Urine Albumin (Reflex) 2+ A
(Neg - Trace)
10/09/24 17:05
10/09/24 17:05
Vital Signs
Initial and Last Documented VS:
Initial Vital Signs
Temp Pulse Resp BP Pulse Ox
98.2 F 89 16 121/73 100
10/09/24 16:52 10/09/24 16:52 10/09/24 16:52 10/09/24 16:52 10/09/24 16:52
Last Documented Vital Signs
Temp Pulse Resp BP Pulse Ox
98.2 F 89 16 121/73 100
10/09/24 16:52 10/09/24 16:52 10/09/24 16:52 10/09/24 16:52 10/09/24 16:52
MDM/Problems Addressed
Differential Diagnosis Includes:
Right flank pain with nausea and vomiting. Consider recurrent kidney stone versus pyelonephritis versus UTI versus viral illness
Urinalysis concerning for infection. Patient tender over the right flank. Will order CT of abdomen to evaluate for any further kidney stones versus pyelonephritis. White blood cell count is normal. Fluids ordered Toradol ordered Zofran ordered
as well as Rocephin. Disposition pending
*Critical Care Note
Total Time (30-74mins, 75-104mins- exclusive of procedures): Not Applicable
Update Note
Update Note:
CT negative for any active ureteral stones. Urinalysis consistent with UTI white count is normal. Patient reassessed and is feeling better after fluids Toradol Zofran. She did receive a dose of Rocephin. Question possible early pyelonephritis
versus UTI overall nontoxic tolerating p.o.'s no indication for admission at this point but return precautions were given. Prescription for Omnicef and Zofran sent to her pharmacy. She will follow-up with urology otherwise
ED Attending Note
-
Portions of this chart may have been created with voice recognition software.� Occasional wrong word or��sound alike� substitutions may have occurred due to the inherent limitations of voice recognition software.
Discharge Plan
Departure
Patient Disposition: Home (Routine Discharge)
Date of Disposition: 10/09/24
Time of Disposition: 20:58
Patient with high blood pressure during this ER visit?: No
Discharge Problem:
UTI (urinary tract infection)
Instructions: Flank Pain (DC)
Prescriptions:
New
cefdinir 300 mg capsule
300 mg PO BID Qty: 14 0RF
ondansetron 4 mg tablet,disintegrating
4 mg PO Q8H PRN (Reason: nausea and vomiting) Qty: 10 0RF
No Action
buspirone 15 mg Tablet
15 mg PO BID
Medical Cannibus
1 dose inhalation PRN PRN (Reason: sleep, anxiety, depression)
Prebiotic Probiotic With Cranb
1 dose PO DAILY
lamotrigine 150 mg Tablet
150 mg PO HS
potassium citrate-citric acid Packet
1 packet PO MOWEFR
Referrals:
Jackie Power CRNP [Family Provider] -
Stand Alone Forms: Return to Work
Activity Restrictions/Additional Instructions:
Drink plenty fluids. Use Zofran if needed for nausea. Take antibiotics as directed. Please return here for increasing pain fever or persistent vomiting. Follow-up with urology otherwise
Interventions
Interventions:
*Risk Screen - Suicide Last Done: 10/09/24 18:16
*General Assessment Last Done: 10/09/24 18:16
*Neglect/Abuse Screening Last Done: 10/09/24 18:16
*ED COVID-19 Vaccine History Last Done: 10/09/24 18:16
LG-Jjxums-Sznmxrmmhu Assessment Last Done: 10/09/24 18:16
ED-Female Genitourinary Assessment Last Done: 10/09/24 18:16
Discharge Date and Time
Print Language: [email or web address]
[2024-10-09] MEDS: ZOFRAN 4 MG IV (20:06)
[2024-10-09] MEDS: TORADOL 15 MG IV (20:06)
[2024-10-09] MEDS: ROCEPHIN 1000 MG IV (20:07)
[2024-10-09] MEDS: NSS 1000 IV (20:07)
== END 2024-10-09 21:13 | disposition home or self-care (01) ==
LOC: EMR 16:48
PROVIDERS: Emergency Medicine; EMERGENCY PHYSICIAN Emergency Medicine; FAMILY PHYSICIAN Nurse Practitioner Adult Health
DX: N39.0 Urinary tract infection, site not specified (principal); Z87.891 Personal history of nicotine dependence
CPT/HCPCS: 99284; 96374; 96375 ×2; 96361; 74176; 80053; 81003; 81015; 83690; 84703; 85025; 87086

== ENCOUNTER → 2024-10-10 14:52 | Outpatient (REF) | payer OTHER, SELFPAY ==
[2024-10-10 16:23] LABS: Rubella Positive
[2024-10-11 11:36] LABS: Mumps Virus IgG Negative; Rubeola (Measles) IgG Negative; Varicella Zoster IgG (VZV) Positive
== END ==
LOC: OHS 14:52
PROVIDERS: ATTENDING PHYSICIAN Nurse Practitioner Family
DX: Z23 Encounter for immunization (principal)
CPT/HCPCS: 36415; 86735; 86762; 86765; 86787

== ENCOUNTER 2024-11-27 17:49 | Emergency (ER) | payer OTHER, SELFPAY ==
[2024-11-27 18:04] VITALS: BP 134/67
[2024-11-27 18:25] LABS: % Basophils 0.7 % (0-2); % Eosinophils 0.8 % (0-6); % Immature Granulocytes 0.1 % (0-0.5); % Monocytes 5.1 % (1.7-9.3); % Neutrophils 57.3 % (42.2-75.2); Absolute Basophils 0.1 10^3/uL (0-0.2); Absolute Eosinophils 0.1 10^3/uL (0-0.7); Absolute Lymphocytes 2.6 10^3/uL (1.2-3.4); Absolute Monocytes 0.4 10^3/uL (0.1-0.6); Absolute Neutrophils 4.1 10^3/uL (1.4-6.5); Hematocrit 35.8 % (37.0-47.0); Hemoglobin 12.1 g/dL (12.0-16.0); Mean Corp Hgb Conc. 33.8 g/dL (33.0-37.0); Mean Corpuscular Hgb 27.1 pg (27.0-31.0); Mean Corpuscular Volume 80.1 fL (81.0-99.0); Nucleated Red Blood Cells % 0 %; Platelet Count 267 10^3/uL (130-400); Red Blood Cell Count 4.47 10^6/uL (4.20-5.40); Red Cell Dist. Width 13.7 % (11.5-14.5); White Blood Cell Count 7.2 10^3/uL (4.8-10.8)
[2024-11-27 18:35] VITALS: BMI 25.5
[2024-11-27 18:35] LABS: HCG, Serum Qualitative Screen Negative
[2024-11-27 18:36] LABS: ALT (SGPT) 14 U/L (0-35); AST (SGOT) 19 U/L (14-36); Albumin 4.3 g/dl (3.5-5.0); Alkaline Phosphatase 56 U/L (38-126); Blood Urea Nitrogen 13 mg/dl (7-17); Calcium 10.6 mg/dl (8.4-10.2); Carbon Dioxide 28 mmol/L (22-30); Chloride 108 mmol/L (98-107); Glucose 94 mg/dl (70-99); Sodium 143 mmol/L (135-145); Total Bilirubin 0.5 mg/dl (0.2-1.3); Urine Albumin 1+ (Neg - Trace); Urine Bilirubin Negative (Negative); Urine Character Cloudy (Clear); Urine Color Yellow; Urine Glucose Negative (Negative); Urine Ketone Negative (Negative); Urine Leukocyte 1+ (Negative); Urine Nitrite Negative (Negative); Urine Occult Blood 3+ (Negative); Urine Specific Gravity 1.015 (<1.030); Urine Urobilinogen Negative (Neg - 1+); eGFR > 60.00
[2024-11-27 18:50] LABS: Urine Amorphous Seen; Urine Bacteria Moderate (Negative); Urine Hyaline Cast 0-2 /LPF (0-2); Urine Squamous Cell 16-20 /LPF (Few); Urine White Cell 26-30 /HPF (0-5)
[2024-11-27] MEDS: KEFLEX 500 MG PO (21:03)
--- NOTE | 2024-11-27 22:35 | ED.GENMED ---
History of Present Illness
General
Chief Complaint: Urinary Symptoms
Source: patient
Exam Limitations: none
Time Seen by Provider: 11/27/24 18:37
Nursing documentation reviewed up to this point in time: agreed with
History of Present Illness
History of Present Illness:
Patient to ED with complaint of right flank radiating to abd. pain. States she has history of kidney stones and UTI's in the past. No fever/chills. No n/v/d/ Brought self to ED for eval
Past History
Past History
ED Past Medical History: Psychiatric (Depression, on Adderall and medical marijuana) and Other (UTI, kidney stones)
ED Past Surgical History: None
Social History
Tobacco: Former smoker
Alcohol: None
Drug: Marijuana
Personal: Single
Living: with family
Employment: Employed
Review of Systems
Review of Systems
Allergies reviewed?: Yes
All Other Systems: ROS reviewed and negative except as documented in HPI and ROS
Constitutional: Reports no symptoms
EENT: Reports no symptoms
Respiratory: Reports no symptoms
Cardiac: Reports no symptoms
ABD/GI: Reports abdominal pain (Right flank radiating to right abd.)
: Reports flank pain
Musculoskeletal: Reports no symptoms
Skin: Reports no symptoms
Neurological: Reports no symptoms
Psychiatric: Reports no symptoms
Phy Exam
General Physical Exam
General Presentation: well appearing and no apparent distress
General age: appears stated age
General Skin: warm and dry
General Habitus: normal
Gastrointestinal Exam
Gastrointestinal Exam: non tender and soft
Musculoskeletal Exam
Musculoskeletal Exam: full ROM and neuro vasc intact
Skin Exam
Skin Exam: normal color, warm/dry and no rash
Psychiatric Exam
Psychiatric Exam: normal mood/affect
Course
Orders/Labs/Results
Orders:
Orders
11/27/24 18:08
Test Result ONCE
11/27/24 18:12
Complete Blood Count/With Diff Urgent
Comprehensive Metabolic Panel Urgent
HCG, Serum Qualitative Screen Urgent
Urinalysis Reflex To Culture Urgent
Date Specimen was Collected: 11/27/24
Time Specimen was Collected: 18:08
Urine Microscopic Reflex Cult Urgent
Urine Culture Urgent
VITO Source: U
Specimen Description:
Date Specimen was Collected: 11/27/24
Time Specimen was Collected: 18:08
11/27/24 19:52
CT Abd/pel Without Iv Or Oral Urgent
Comment:
Reason For Exam: flank pain, hx kidney stones
11/27/24 20:46
Cephalexin Monohydrate [Keflex] 500 mg PO NOW STA
Abnormal Lab Results
11/27/24
18:12
Hct 35.8 L %
(37.0-47.0)
MCV 80.1 L fL
(81.0-99.0)
Chloride 108 H mmol/L
(98-107)
Calcium 10.6 H mg/dl
(8.4-10.2)
Ur Occult Blood Reflex 3+ A
(Negative)
Leukocyte Esterase Rfl 1+ A
(Negative)
Urine RBC 7-10 A /HPF
(0-2)
Urine WBC (Reflex) 26-30 A /HPF
(0-5)
Urine Bacteria (Reflex) Moderate A
(Negative)
Urine Albumin (Reflex) 1+ A
(Neg - Trace)
11/27/24 18:12
11/27/24 18:12
Vital Signs
Initial and Last Documented VS:
Initial Vital Signs
Temp Pulse Resp BP Pulse Ox
98.2 F 52 16 134/67 98
11/27/24 18:04 11/27/24 18:04 11/27/24 18:04 11/27/24 18:04 11/27/24 18:04
Last Documented Vital Signs
Temp Pulse Resp BP Pulse Ox
98.2 F 52 16 134/67 98
11/27/24 18:04 11/27/24 18:04 11/27/24 18:04 11/27/24 18:04 11/27/24 18:04
*Radiology
Radiology exam reviewed: radiology read reviewed
*Pulse Oximetry
Patient hypoxic: no
*Critical Care Note
Total Time (30-74mins, 75-104mins- exclusive of procedures): Not Applicable
Update Note
Update Note:
Patient to ED with complaint of right flank pain radiating to right abd. CT without evidence of obstructive uropathy, no hydronephrosis. Labs reviewed with her. UA reflecting UTI. Antibiotic started in dept. Given instructions on s/s to return
to ED and she is agreeable to plan. She remains afebrile. NO n/v/d.
ED Attending Note
-
Portions of this chart may have been created with voice recognition software.� Occasional wrong word or��sound alike� substitutions may have occurred due to the inherent limitations of voice recognition software.
Discharge Plan
Departure
Patient Disposition: Home (Routine Discharge)
Date of Disposition: 11/27/24
Time of Disposition: 20:46
Patient with high blood pressure during this ER visit?: No
Condition: Good
Covid-19: Not Applicable
Discharge Problem:
UTI (urinary tract infection)
Instructions: Urinary Tract Infection, Adult (DC)
Prescriptions:
New
cephalexin 500 mg capsule
500 mg PO BID 7 Days Qty: 14 0RF
No Action
buspirone 15 mg Tablet
15 mg PO BID
Medical Cannibus
1 dose inhalation PRN PRN (Reason: sleep, anxiety, depression)
Prebiotic Probiotic With Cranb
1 dose PO DAILY
lamotrigine 150 mg Tablet
150 mg PO HS
potassium citrate-citric acid Packet
1 packet PO MOWEFR
cefdinir 300 mg capsule
300 mg PO BID Qty: 14 0RF
ondansetron 4 mg tablet,disintegrating
4 mg PO Q8H PRN (Reason: nausea and vomiting) Qty: 10 0RF
Referrals:
Jackie Power CRNP [Family Provider] - Follow up in 2-3 days
Interventions
Interventions:
*Risk Screen - Suicide Last Done: 11/27/24 18:04
*General Assessment Last Done: 11/27/24 18:35
*Neglect/Abuse Screening Last Done: 11/27/24 18:04
*ED COVID-19 Vaccine History Last Done: 11/27/24 18:35
*Nursing Disposition Last Done: 11/27/24 20:52
ED-Female Genitourinary Assessment Last Done: 11/27/24 18:35
Discharge Date and Time
Discharge Date/Time: 11/27/24 21:09
Print Language: BENGALI
== END 2024-11-27 21:09 | disposition home or self-care (01) ==
LOC: EMR 17:49
PROVIDERS: Emergency Medicine; EMERGENCY PHYSICIAN Emergency Medicine; FAMILY PHYSICIAN Nurse Practitioner Adult Health
DX: N39.0 Urinary tract infection, site not specified (principal); F32.A Depression, unspecified; Z87.440 Personal history of urinary (tract) infections; Z87.442 Personal history of urinary calculi; Z87.891 Personal history of nicotine dependence
CPT/HCPCS: 99284; 74176; 80053; 81003; 81015; 84703; 85025; 87086